=== PATIENT | male | born 1990 | race Caucasian/White ===

== ENCOUNTER 2017-08-16 10:36 | Emergency (ER) | payer BC ==
[~2017-08-16] VITALS: Ht 175.3 cm; Wt 113.9 kg
[~2017-08-16 10:36] MED LIST: ZOFRAN ODT4 MG PO
[2017-08-16 11:11] LABS: HEMATOCRIT 45.3 % (38.0-50.0); HEMOGLOBIN 15.7 G/DL (12.5-16.6); MCH 28.7 PG (29.0-34.0); MCHC 34.7 G/DL (30.0-36.0); MCV 82.8 FL (86-99); PLATELET COUNT 337 K/uL (156-360); RBC DIS.WIDTH-CV 11.9 % (11.8-14.6); RBC DIS.WIDTH-SD 35.8 % (39-53); RED BLOOD COUNT 5.47 M/uL (4.00-5.50); WHITE BLOOD COUNT 8.1 K/uL (4.1-10.2)
[2017-08-16 11:12] LABS: CHLORIDE 105 mEq/L (99-109); POTASSIUM 4.5 mEq/L (3.7-5.4); SODIUM 138 mEq/L (136-147)
[2017-08-16 11:14] LABS: GLUCOSE 76 mg/dL (70-99)
[2017-08-16 11:18] LABS: CREATININE 0.9 mg/dL (0.6-1.3); GFR ESTIMATE (CALCULATED) > 59 mL/min/ (58.99-99999); UREA NITROGEN (BUN) 11 mg/dL (9-23)
[2017-08-16 11:23] LABS: TROP-I INTERPRETATION NEGATIVE; TROPONIN-I < 0.01 ng/mL (0.0-0.30)
[2017-08-16 12:26] VITALS: BP 146/87
== END 2017-08-16 12:30 | disposition home or self-care (01) ==
LOC: EME 10:36
DX: R07.89 Other chest pain (principal)
CPT/HCPCS: 71046; 80048; 84484; 85027; 93005; 99281; 99283